=== PATIENT | female | born 1975 | race Caucasian/White ===

== ENCOUNTER 2023-09-28 09:22 | Emergency (ER) | payer MEDICARE, MEDICAID, SELFPAY ==
--- NOTE | ~2023-09-28 | CT_ITS ---
EXAMINATION: CT ABDOMEN AND PELVIS WITH CONTRAST CLINICAL INFORMATION: Severe rectal pain. COMPARISON: 08/05/2019 TECHNIQUE: Multidetector volumetric images were obtained from the superior aspect of the liver through the pubic symphysis following administration 85 mL of Omnipaque 350 intravenous contrast. Sagittal and coronal reformatted images were obtained on the technologist's workstation. Oral contrast: No This CT examination was performed using dose optimization techniques as appropriate, variously including the following: *Automated exposure control *Adjustment of mA and/or kV according to patient size (this includes techniques or standardized protocols for targeted exams where dose is matched to indication/reason for exam; i.e. extremities or head) *Use of iterative reconstruction technique DLP: 645 mGy-cm FINDINGS: LUNG BASES: Small pericardial effusion. LIVER, GALLBLADDER, AND BILIARY TREE: The liver is normal in size and contour. No suspicious hepatic lesion or biliary ductal dilatation is present. The gallbladder is unremarkable with no evidence of radiopaque gallstones, gallbladder wall thickening, or obvious pericholecystic inflammatory changes. PANCREAS: Unremarkable. SPLEEN: Unremarkable. ADRENAL GLANDS: Unremarkable. KIDNEYS AND URETERS: The kidneys are symmetric in size and. No hydronephrosis or perinephric stranding. BLADDER: Unremarkable. GASTROINTESTINAL TRACT: There is wall thickening of mid small bowel loops in the left abdomen. No small bowel obstruction. ABDOMINAL WALL: No significant hernia is appreciated. LYMPH NODES: No bulky lymphadenopathy. VASCULAR: Normal caliber abdominal aorta. PELVIC VISCERA: Uterus is surgically absent. Trace free fluid in pelvis. OSSEOUS STRUCTURES: Advanced degenerative disc disease at L5-S1. CT/CT abdomen pelvis w IV con IMPRESSION: Mid small bowel wall thickening. The possibility of enteritis should be considered.
[2023-09-28 09:31] VITALS: BP 130/78; PULSE 67; RESP 20; TEMP 36.6; O2SAT 99; BMI 25.8
[2023-09-28 09:53] LABS: MANUAL DIFF FLAG NO
[2023-09-28 09:55] LABS: Basophils Percent Auto 0.6 % (0-2); Eosinophils Absolute Auto 0.2 X10*3/uL (0.0-0.4); Eosinophils Percent Auto 3.8 % (0-4); Hematocrit 36.5 % (37.0-47.0); Hemoglobin 12.5 g/dl (12.0-16.0); Imm Gran Abs Auto 0.01 X10*3/uL (0.00-0.03); Imm Gran Pct Auto 0.2 % (0.0-0.4); Lymphocytes Absolute Auto 1.3 X10*3/uL (1.2-4.9); Lymphocytes Percent Auto 25.9 % (20-40); Mean Corpuscular HGB Conc 34.2 g/dl (31.0-35.0); Mean Corpuscular Hemoglobin 32.2 pg (27.0-33.0); Mean Corpuscular Volume 94.1 fL (80.0-98.0); Mean Platelet Volume 9.4 fL (9.4-12.3); Monocytes Absolute Auto 0.4 X10*3/uL (0.1-1.2); Monocytes Percent Auto 8.1 % (2-11); Neutrophils Absolute Auto 3.1 x10*3/uL (2.0-8.3); Neutrophils Percent Auto 61.4 % (45-73); Platelet Count 248 X10*3/uL (160-400); Red Blood Count 3.88 X10*6/uL (4.20-5.50); Red Cell Distribution Width 12.7 % (11.0-16.0); White Blood Count 5.1 X10*3/uL (4.8-10.8)
[2023-09-28 10:09] LABS: Anion Gap 9 (12-20); Blood Urea Nitrogen 9 mg/dL (9-16); Calcium 8.8 mg/dL (8.4-10.2); Carbon Dioxide 29 mmol/L (22-29); Chloride 106 mmol/L (96-108); Creatinine Clr Calc Pharmacy 85.3; Estimated Glomerular Filt Rate > 60; Glucose Random 94 mg/dL (60-115); Potassium 4.4 mmol/L (3.3-5.1); Sodium 140 mmol/L (135-145)
[2023-09-28 14:31] VITALS: BP 144/61; PULSE 75; RESP 15; TEMP 36.5; O2SAT 96
--- NOTE | 2023-09-28 14:41 | ED_ITS ---
HPI - General Adult General Chief complaint: General Medical Stated complaint: rectal issue surgery 05/25 Time Seen by Provider: 09/28/23 14:27 Source: patient Mode of arrival: ambulatory Limitations: no limitations History of Present Illness HPI narrative: 47 yo female PMH of migraines who is s/p bladder sling and rectal incontinence surgery at [facility] in May with Dr. Pizarro notes since then her stools have been loose like baby stool. She has chronic pain but is only on medical marijuana. She notes recent severe rectal pain x 1 week. She has been trying sitz bath with some relief. She took a picture during acute episode and showed it to us - 2 non thrombosed ext hemorrhoids noted. She notes decreased PO intake. increased pain and feels her entire perineum area is swollen. MD complaint: rectal/perineum pain Onset (ago): week(s) (1) Location: genitals and buttocks Severity: severe Quality: aching and constant Pain Consistency: constant Relieving factors: none Exacerbating factors: movement Associated symptoms: other (dysuria) Treatments prior to arrival: none Related Data Previous Rx's ?Medication ?Instructions ?Recorded hydrocortisone 1 %-pramoxine 1 % 1 appl [place] BEDTIME PRN hemorrhoids 09/28/23 rectal foam (Proctofoam HC) #10 grams Allergies Allergy/AdvReac Type Severity Reaction Status Date / Time ketorolac [From TORADOL] Allergy Intermediate MAKES ME Verified 09/28/23 09:37 SICK metoclopramide [From REGLAN] Allergy Intermediate ANAPHALYXIS Verified 09/28/23 09:37 butalbital [From FIORICET] Allergy Unknown UNKNOWN Verified 09/28/23 09:37 caffeine [From FIORICET] Allergy Unknown UNKNOWN Verified 09/28/23 09:37 capsaicin Allergy Unknown UNKNOWN Verified 09/28/23 09:37 [From ALLEVESS PATCH] erenumab-aooe Allergy Unknown Unknown Verified 09/28/23 09:37 [Aimovig Autoinjector] escitalopram [Lexapro] Allergy Unknown Unknown Verified 09/28/23 09:37 gabapentin [GABAPENTIN] Allergy Unknown UNKNOWN Verified 09/28/23 09:37 menthol [From ALLEVESS PATCH] Allergy Unknown UNKNOWN Verified 09/28/23 09:37 morphine [MORPHINE] Allergy Unknown UNKNOWN Verified 09/28/23 09:37 naproxen [NAPROXEN] Allergy Unknown ITCHING Verified 09/28/23 09:37 Penicillins [PENICILLINS] Allergy Unknown ANAPHYLAXIS Verified 09/28/23 09:37 pregabalin [From LYRICA] Allergy Unknown NKNOWN Verified 09/28/23 09:37 prochlorperazine Allergy Unknown DYSTONIC Verified 09/28/23 09:37 [From COMPAZINE] REACTION Sulfa (Sulfonamide Allergy Unknown ITCHING/SWE Verified 09/28/23 09:37 Antibiotics) LLING [SULFA (SULFONAMIDE ANTIBIOTICS)] sulfacetamide Allergy Unknown Anaphylaxis Verified 09/28/23 09:37 sumatriptan [SUMATRIPTAN] Allergy Unknown ANAPHYLAXIS Verified 09/28/23 09:37 topiramate [From TOPAMAX] Allergy Unknown UNKNOWN Verified 09/28/23 09:37 tramadol [TRAMADOL] Allergy Unknown HIVES Verified 09/28/23 09:37 bee sting Allergy Unknown Anaphylaxis Uncoded 09/28/23 09:37 Caffeine-Sodium Benzoate Allergy Unknown Unknown Uncoded 09/28/23 09:37 cat dander Allergy Unknown Watery Eye Uncoded 09/28/23 09:37 Compazine Allergy Unknown Difficulty Uncoded 09/28/23 09:37 Breathing Muscle Relief Allergy Unknown Difficulty Uncoded 09/28/23 09:37 Breathing Review of Systems 2 Review of Systems: Constitutional : No Fever, No Chills, No Fatigue ENT/Mouth : No sore throat, No Rhinorrhea Eyes: No Eye Pain, No Swelling, No Redness Cardiovascular : No Chest Pain, No SOB, No Dyspnea on Exertion Respiratory : No Cough, No Sputum Gastrointestinal : No Nausea, No Vomiting, No Diarrhea, No abdominal Pain, pos rectal pain Genitourinary : pos Dysuria, No Urinary Frequency, No Hematuria, Musculoskeletal : No joint pain, No Myalgias, No Joint Swelling Skin : No Skin Lesions, No rash Neuro : No Weakness, No Numbness, No Dizziness, no Headache Psych : No Anxiety/Panic, No Depression All other systems reviewed and are negative [facility] Past Medical History Attestation statement: The following information was validated with the patient. Source: old records reviewed Medical History Migraines Social History Social History (Updated 09/28/23 @ 14:56 by Kaitlin Hartley DO) Patient Tobacco Use Status: Never used Tobacco Smoked in Last 30 Days: No Use of substances other than those prescribed or required for medical reasons: Yes Substance Use Type: Marijuana Advance Directives: No Advance Directives Information Provided: No Patient : No Physical Exam ED Vital Signs: Vital Signs - 24 hr 09/28/23 09:31 09/28/23 14:31 09/28/23 16:00 Temperature 97.9 F 97.7 F 98.0 F Pulse Rate 67 75 67 Respiratory Rate 20 15 16 Blood Pressure 130/78 144/61 H 125/60 Pulse Oximetry 99 96 99 Oxygen Delivery Method Room Air Room Air Room Air 09/28/23 16:23 09/28/23 17:34 09/28/23 17:41 Temperature 98.4 F 98.4 F Pulse Rate 63 63 63 Respiratory Rate 16 16 16 Blood Pressure 131/58 L 118/45 L 118/45 L Pulse Oximetry 100 99 99 Oxygen Delivery Method Room Air Room Air Room Air BMI result Body Mass Index 25.8 Appearance: Alert. Oriented X3. No acute distress. Eyes: Pupils equal, round and reactive to light. ENT: Pharynx normal. Neck: Normal inspection. Neck supple. CVS: Normal heart rate and rhythm. Pulses normal. Respiratory: No respiratory distress. Breath sounds normal. Abdomen: Soft and nontender. Rectal: no swelling/erythema no mass felt - 2 non thrombosed small ext hemorrhoids noted mucosa is normal - Sruthi tech present Skin: Skin warm and dry. Normal skin color. Normal skin turgor. Extremities: No lower extremity edema. No calf ttp Neuro: Oriented X 3. No motor deficit. No sensory deficit. Medications Administered Discontinued Medications Generic Name Dose Route Start Last Admin Trade Name Dania PRN Reason Stop Dose Admin Diphenhydramine HCl 50 mg 09/28/23 16:18 09/28/23 16:22 Diphenhydramine Hcl 50 Mg/Ml Vial IVPUSH 09/28/23 16:19 50 mg ONCE ONE Administration Hydromorphone HCl 1 mg 09/28/23 14:36 09/28/23 15:08 Hydromorphone Hcl 1 Mg/Ml Syringe IVPUSH 09/28/23 14:37 1 mg ONCE ONE Administration Protocol Sodium Chloride 1,000 mls @ 999 mls/hr 09/28/23 14:45 09/28/23 16:13 Ns IV 09/28/23 15:45 Infused .Q1H1M KAYCE Infusion Iohexol 100 ml 09/28/23 15:37 09/28/23 15:38 Iohexol 350 Mg/Ml 100 Ml Infus..Btl IV 09/28/23 15:38 85 ml ONCE ONE Administration Ondansetron HCl 4 mg 09/28/23 14:36 09/28/23 15:08 Ondansetron Hcl 4 Mg/2 Ml Vial IVPUSH 09/28/23 14:37 4 mg ONCE ONE Administration Medical Decision Making Medical Decision Making MDM Narrative: 47 yo female with PMH of migraines s/p rectal surgery/bladder incontinence here with c/o rectal and perineum pain without overt external signs of infection or mass. She reports severe pain and abnormal stools since May at this time given degree of apin IV diluadid ordered, CT scan for mass or post operative fistula. Differential Diagnosis Differential Diagnoses: The differential diagnosis associated with the presentation includes mass, fistula Admission/Observation Consideration of admission/observation: Escalation of care including admission/observation considered no acute findings on CT scan to explain patient's symptoms Lab Data [facility] Lab Attestation statement: I reviewed the patient's lab results. 09/28/23 09:49 09/28/23 09:49 Labs: Lab Results 09/28/23 09/28/23 Range/Units 09:49 16:12 WBC 5.1 (4.8-10.8) X10*3/uL RBC 3.88 L (4.20-5.50) X10*6/uL Hgb 12.5 (12.0-16.0) g/dl Hct 36.5 L (37.0-47.0) % MCV 94.1 (80.0-98.0) fL MCH 32.2 (27.0-33.0) pg MCHC 34.2 (31.0-35.0) g/dl RDW 12.7 (11.0-16.0) % Plt Count 248 (160-400) X10*3/uL MPV 9.4 (9.4-12.3) fL Immature Gran % (Auto) 0.2 (0.0-0.4) % Neut % (Auto) 61.4 (45-73) % Lymph % (Auto) 25.9 (20-40) % [place] % (Auto) 8.1 (2-11) % Eos % (Auto) 3.8 (0-4) % Baso % (Auto) 0.6 (0-2) % Lymph # (Auto) 1.3 (1.2-4.9) X10*3/uL [place] # (Auto) 0.4 (0.1-1.2) X10*3/uL Eos # (Auto) 0.2 (0.0-0.4) X10*3/uL Baso # (Auto) 0.0 (0.0-0.2) X10*3/uL Abs Immat Gran (auto) 0.01 (0.00-0.03) X10*3/uL Absolute Neuts (auto) 3.1 (2.0-8.3) x10*3/uL Absolute Nucleated RBC 0.000 (0.0-0.012) X10*3/uL Nucleated RBC % (auto) 0.0 (0.0-0.2) /100WBC Sodium 140 (135-145) mmol/L Potassium 4.4 (3.3-5.1) mmol/L Chloride 106 (96-108) mmol/L Carbon Dioxide 29 (22-29) mmol/L Anion Gap 9 L (12-20) BUN 9 (9-16) mg/dL Creatinine 0.86 (0.5-1.4) mg/dL Estim Creat Clear Calc 85.3 Estimated GFR > 60 Random Glucose 94 (60-115) mg/dL Calcium 8.8 (8.4-10.2) mg/dL Total Bilirubin 0.2 (0.0-1.0) mg/dL Direct Bilirubin < 0.2 (0.0-0.5) mg/dL AST 15 (5-31) U/L ALT 11 (0-31) U/L Alkaline Phosphatase 75 (39-117) U/L Total Protein 6.6 (6.5-8.0) g/dL Albumin 4.0 (3.5-5.0) g/dL Lipase 26 (8-78) U/L Urine Color Yellow Urine Appearance Clear Urine pH 7.0 (5.0-9.0) Ur Specific [place] 1.020 (1.005-1.025) Urine Protein Negative (Neg-Trace) mg/dL Urine Glucose (UA) Negative (Negative) mg/dL Urine Ketones Negative (Negative) mg/dL Urine Blood Negative (Negative) Urine Nitrite Negative (Negative) Ur Leukocyte Esterase Negative (Negative) Independent Interpretation I performed an independent interpretation of an: CT Scan (possible mild enteritis) Radiology Impression Discussion of test interpretation with radiology: I have reviewed the radiologist's reading. External Record Review External record reviewed: Inpatient record Prescription Management I considered prescription management with: Pain Medication Critical Care Time Critical Care Time Critical Care Time: Yes Total Critical Care Time: 35 Attestation: pain improved with IV dilaudid, repeat assessment I attest to this time spent taking care of the patient Discharge Plan Discharge Clinical Impression: External hemorrhoid, Pain in rectum Patient Disposition: Home, Self-Care Instructions: Hemorrhoids (ED), Rectal Pain (ED) Additional Instructions: labs reassuring, urine normal. no acute findings on CT scan to explain your pain. you should call your surgeon as soon as possible return for any worsening symptoms or concerns. stay hydrated. Prescriptions: New Proctofoam HC 1-1 % foam 1 appl [place] BEDTIME PRN (Reason: hemorrhoids) Qty: 10 0RF Interventions: ED Discharge Assessment Last Done: 09/28/23 17:41 Discharge Date/Time: 09/28/23 17:45 Print Language: Guatemalan
[2023-09-28] MEDS: 0.9 % Sodium Chloride 1,000 ML 999 ML IV (15:07)
[2023-09-28] MEDS: HYDROmorphone HCl 1 MG/ML SYRINGE IVPUSH (15:08)
[2023-09-28] MEDS: ondansetron HCL 4 MG/2 ML VIAL IVPUSH (15:08)
[2023-09-28 15:38] LABS: Alanine Aminotransferase 11 U/L (0-31); Alkaline Phosphatase 75 U/L (39-117); Aspartate Amino Transferase 15 U/L (5-31); Bilirubin Direct < 0.2 mg/dL (0.0-0.5); Bilirubin Total 0.2 mg/dL (0.0-1.0); Lipase 26 U/L (8-78); Total Protein 6.6 g/dL (6.5-8.0)
[2023-09-28] MEDS: iohexoL 350 MG/ML 100 ML INFUS..BTL IV (15:38)
[2023-09-28 16:00] VITALS: BP 125/60; PULSE 67; RESP 16; TEMP 36.7; O2SAT 99
[2023-09-28] MEDS: diphenhydrAMINE HCL 50 MG/ML VIAL IVPUSH (16:22)
[2023-09-28 16:23] VITALS: BP 131/58; PULSE 63; RESP 16; O2SAT 100
[2023-09-28 16:29] LABS: Appearance Urine Clear; Color Urine Yellow; Glucose Urine UA Negative (Negative); Leukocyte Esterase Urine Negative (Negative); Nitrite Urine Negative (Negative); Urine Blood Negative (Negative); Urine Ketones Negative (Negative); Urine Protein Negative (Neg-Trace)
[2023-09-28 17:34] VITALS: BP 118/45; PULSE 63; RESP 16; TEMP 36.9; O2SAT 99
[2023-09-28 17:41] VITALS: BP 118/45; PULSE 63; RESP 16; TEMP 36.9; O2SAT 99
== END 2023-09-28 17:45 | disposition home or self-care (01) ==
PROVIDERS: Emergency Provider Emergency Medicine; PCP Pediatrics
DX: K62.89 Other specified diseases of anus and rectum (principal); K64.4 Residual hemorrhoidal skin tags; Z88.0 Allergy status to penicillin; Z88.5 Allergy status to narcotic agent; Z88.8 Allergy status to other drugs, medicaments and biological substances
CPT/HCPCS: 36415; 74177; 80048; 80076; 81003; 83690; 85025; 96361; 96374; 96375; 99284; J1170; J1200; J2405; Q9967

== ENCOUNTER 2023-10-14 08:14 | Emergency (ER) | payer MEDICARE, OTHER, MEDICAID, SELFPAY ==
[2023-10-14 08:23] VITALS: BP 152/66; PULSE 79; RESP 18; TEMP 35.9; O2SAT 97; BMI 26.6
--- NOTE | 2023-10-14 09:10 | ED_ITS ---
HPI - General Adult General Chief complaint: Skin/Abscess/Foreign Body Stated complaint: Herpes Outbreak on Face Time Seen by Provider: 10/14/23 09:06 Source: patient Mode of arrival: ambulatory Limitations: no limitations History of Present Illness HPI narrative: Patient is a 47 year old assigned female at with a history of HSV presenting to the emergency department today with an HSV outbreak. Patient states that she is supposed to have surgery soon and hasn't been able to clear her oral HSV outbreak. Patient states that they won't intubate her for general anesthesia unless she gets it resolved. Patient states that she has had Valtrax before but for some reason, her PCP has it listed as an allergy for her - so they are refusing to prescribe it. Patient states that she would like to be prescribed that medication. Patient denies any dizziness, lightheadedness, abdominal pain, nausea, vomiting, fever, chills, blurry vision, double vision, loss of vision, chest pain, difficulty breathing, shortness of breath, back pain, night sweats, pain with urination, increased urinary frequency, increased urinary urgency, blood in her urine or stool, syncope or a near syncopal episode, recent trauma or falls, bowel incontinence, bladder incontinence, bowel retention, bladder retention, or any other complaints at this time. Relieving factors: none Exacerbating factors: none Associated symptoms: rash Treatments prior to arrival: none Related Data Previous Rx's ?Medication ?Instructions ?Recorded hydrocortisone 1 %-pramoxine 1 % 1 appl [place] BEDTIME PRN hemorrhoids 09/28/23 rectal foam (Proctofoam HC) #10 grams prednisone 20 mg tablet 20 mg PO DAILY 7 days #7 tabs 10/14/23 valacyclovir 500 mg tablet 500 mg PO BID 3 days #6 tabs 10/14/23 Allergies Allergy/AdvReac Type Severity Reaction Status Date / Time ketorolac [From TORADOL] Allergy Intermediate MAKES ME Verified 09/28/23 09:37 SICK metoclopramide [From REGLAN] Allergy Intermediate ANAPHALYXIS Verified 09/28/23 09:37 butalbital [From FIORICET] Allergy Unknown UNKNOWN Verified 09/28/23 09:37 caffeine [From FIORICET] Allergy Unknown UNKNOWN Verified 09/28/23 09:37 capsaicin Allergy Unknown UNKNOWN Verified 09/28/23 09:37 [From ALLEVESS PATCH] erenumab-aooe Allergy Unknown Unknown Verified 09/28/23 09:37 [Aimovig Autoinjector] escitalopram [Lexapro] Allergy Unknown Unknown Verified 09/28/23 09:37 gabapentin [GABAPENTIN] Allergy Unknown UNKNOWN Verified 09/28/23 09:37 menthol [From ALLEVESS PATCH] Allergy Unknown UNKNOWN Verified 09/28/23 09:37 morphine [MORPHINE] Allergy Unknown UNKNOWN Verified 09/28/23 09:37 naproxen [NAPROXEN] Allergy Unknown ITCHING Verified 09/28/23 09:37 Penicillins [PENICILLINS] Allergy Unknown ANAPHYLAXIS Verified 09/28/23 09:37 pregabalin [From LYRICA] Allergy Unknown NKNOWN Verified 10/14/23 08:26 prochlorperazine Allergy Unknown DYSTONIC Verified 10/14/23 08:26 [From COMPAZINE] REACTION Sulfa (Sulfonamide Allergy Unknown ITCHING/SWE Verified 10/14/23 08:26 Antibiotics) LLING [SULFA (SULFONAMIDE ANTIBIOTICS)] sulfacetamide Allergy Unknown Anaphylaxis Verified 10/14/23 08:26 sumatriptan [SUMATRIPTAN] Allergy Unknown ANAPHYLAXIS Verified 10/14/23 08:26 topiramate [From TOPAMAX] Allergy Unknown UNKNOWN Verified 10/14/23 08:26 tramadol [TRAMADOL] Allergy Unknown HIVES Verified 10/14/23 08:26 bee sting Allergy Unknown Anaphylaxis Uncoded 09/28/23 09:37 Caffeine-Sodium Benzoate Allergy Unknown Unknown Uncoded 09/28/23 09:37 cat dander Allergy Unknown Watery Eye Uncoded 09/28/23 09:37 Compazine Allergy Unknown Difficulty Uncoded 09/28/23 09:37 Breathing Muscle Relief Allergy Unknown Difficulty Uncoded 09/28/23 09:37 Breathing Review of Systems Constitutional: Constitutional: Reports no additional constitutional complaints, Denies chills, Denies fever(s) and Denies night sweats Eyes: Eyes: Reports no additional eye complaints, Denies blurry vision, Denies change in vision, Denies diplopia, Denies eye discharge, Denies loss of vision and Denies eye pain ENT: Denies dizziness Comments: herpes outbreak around mouth Cardiovascular: Cardiovascular: Reports no additional cardiovascular complaints, Denies chest pain, Denies lightheadedness, Denies Loss of Consciousness and Denies dyspnea Respiratory: Respiratory: Reports no additional respiratory complaints and Denies dyspnea Gastrointestinal: Gastrointestinal: Reports no additional gastrointestinal complaints, Denies abdominal pain, Denies melena, Denies hematochezia, Denies change in bowel habits and Denies change in stool character Genitourinary: Genitourinary: Denies hematuria, Denies urinary frequency, Denies dysuria, Denies urinary incontinence, Denies urinary hesitancy and Denies urinary urgency Musculoskeletal: Musculoskeletal: Reports no additional musculoskeletal complaints, Denies numbness and Denies tingling Neurologic: Denies dizziness, Denies loss of vision, Denies numbness and Denies tingling Psychiatric: Psychiatric: Reports no additional psychiatric complaints Endocrine: Endocrine: Reports no additional endocrine complaints Hematologic/Lymphatic: Hematologic/Lymphatic: Reports no additional hematologic/lymphatic complaints Allergic/Immunologic: Allergic/Immunologic: Reports no additional allergic/immunologic complaints PMF Past Medical History Attestation statement: The following information was validated with the patient. Source: old records reviewed and nursing notes reviewed Medical History Migraines Social History Social History Patient Tobacco Use Status: Never used Tobacco Substance Use Type: Marijuana Advance Directives: No Advance Directives Information Provided: No Do you have a plan to hurt others: No Plan Physical Exam ED Vital Signs: Vital Signs - 24 hr 10/14/23 08:23 10/14/23 09:39 Temperature 96.7 F L 98.5 F Pulse Rate 79 64 Respiratory Rate 18 19 Blood Pressure 152/66 H 102/60 Pulse Oximetry 97 98 Oxygen Delivery Method Room Air Room Air BMI result Body Mass Index 26.6 Const General: cooperative, no acute distress, alert and awake Nutritional Appearance: well nourished Orientation/consciousness: patient oriented x3 Limitations: no limitations HENMT Head: Yes normal to inspection and Yes atraumatic Ears: hearing grossly normal bilaterally and external ears normal General nose exam: Normal external nose present, no nasal discharge noted and no epistaxis Face and sinus: No abrasion, No laceration and Yes other (multiple herpetic lesions present circumferentially around the mouth) Mouth: Normal oral and palatal mucosa present, no drooling and no muffled voice Eyes General: appearance normal, both eyes and all related structures Periorbital: periorbital findings normal Eyelids: Yes eyelids normal Conjunctivae: conjunctivae normal Pupils: Equal, round and reactive pupils present EOM: EOMs intact bilaterally Neck Neck: Yes normal visual inspection, Yes full ROM and Yes no lymphadenopathy Chest Chest palpation & inspection: normal inspection of the chest Resp Effort & Inspection: normal respiratory effort and able to speak in complete sentences GI Inspection: Yes normal to inspection Neuro General: patient oriented x3 and moves all extremities Cranial nerves: Yes Equal, round and reactive pupils present Cognition (Neuro): normal cognition Motor exam (neuro): 5/5 motor strength present throughout Sensory Exam: Normal double simultaneous stimulation for sensation Coordination: [id number] test normal Extrem General: Yes normal to inspection, Yes full ROM and Yes capillary refill normal Psych Appearance: grossly normal Mental Status: mental status grossly normal Affect: normal affect Attitude: cooperative Thought process: Normal thought process present Thought content: Normal thought content present Insight: Good insight present (Psych) Medical Decision Making Medical Decision Making MDM Narrative: Patient is a 47 year old assigned female at with a history of HSV presenting to the emergency department today with an HSV outbreak. Patient's physical exam was as noted in the physical exam portion of this note. No evidence of eye or nose involvement. I explained my physical exam findings to the patient. I answered all questions asked by the patient. I stressed the importance of the patient taking her medication as prescribed. I stressed the importance of the patient following up with her primary care provider. I stressed the importance of the patient returning to the emergency department immediately if her symptoms were to worsen or if she were to develop any dizziness, shortness of breath, difficulty breathing, chest pain, blurry vision, loss of vision, nausea, vomiting, abdominal pain, fever, chills, back pain, or any other complaints. Patient verbalized agreement and understanding with this treatment plan and discharge. Differential Diagnosis Differential Diagnoses: The differential diagnosis associated with the prese ntation includes HSV outbreak Herpetic lesion Rash Admission/Observation Consideration of admission/observation: Escalation of care including admission/observation considered Patient would have been admitted to the hospital had her clinical presentation warranted hospital admission. Prescription Management I considered prescription management with: Antiviral (patient prescribed an antiviral for her HSV outbreak) Discharge Plan Discharge Clinical Impression: Herpes Patient Disposition: Home, Self-Care Instructions: Oral Herpes Simplex Virus Infections (ED) Additional Instructions: Follow up with your primary care provider. Return to the emergency department immediately if your symptoms worsen or if you develop any dizziness, shortness of breath, difficulty breathing, chest pain, blurry vision, loss of vision, nausea, vomiting, abdominal pain, fever, chills, back pain, or any other complaints. Prescriptions: New valacyclovir 500 mg tablet 500 mg PO BID 3 Days Qty: 6 3RF prednisone 20 mg tablet 20 mg PO DAILY 7 Days Qty: 7 0RF No Action Proctofoam HC 1-1 % foam 1 appl [place] BEDTIME PRN (Reason: hemorrhoids) Qty: 10 0RF Referrals: Garry Ogden MD [Primary Care Provider] - Stand Alone Forms: Work/School Release Interventions: ED Discharge Assessment Last Done: 10/14/23 09:39 Discharge Date/Time: 10/14/23 09:41 Print Language: Kyrgyz
[2023-10-14 09:39] VITALS: BP 102/60; PULSE 64; RESP 19; TEMP 36.9; O2SAT 98
== END 2023-10-14 09:41 | disposition home or self-care (01) ==
PROVIDERS: Emergency Provider Emergency Medicine; PCP Pediatrics
DX: B00.1 Herpesviral vesicular dermatitis (principal)
CPT/HCPCS: 99282; 99283

== ENCOUNTER 2025-03-03 09:12 | Emergency (ER) | payer OTHER, MEDICAID, SELFPAY ==
--- NOTE | ~2025-03-03 | CT_ITS ---
EXAMINATION: CT ANGIOGRAM head and NECK and noncontrast head CT CLINICAL INFORMATION: severe headache, pulsatile tinnitus COMPARISON: Head CT April 03, 2019 TECHNIQUE: Noncontrast axial imaging of the head was performed. This was followed by test bolus sequences and head and neck intravenous bolus administration of 70mL of Omnipaque 350. Helical imaging was performed in the axial plane from the aortic arch to the skull vertex. The data was processed at the pathology technologist's workstation for generation of MIP sequences. Angled MIPs and volume rendered reformatted images were also generated at an offline 3D workstation. Stenoses are assessed in accordance with NASCET criteria unless otherwise indicated. This CT examination was performed using dose optimization techniques as appropriate, variously including the following: *Automated exposure control *Adjustment of mA and/or kV according to patient size (this includes techniques or standardized protocols for targeted exams where dose is matched to indication/reason for exam; i.e. extremities or head) *Use of iterative reconstruction technique DLP: 1413 mGy*cm FINDINGS: NONCONTRAST HEAD CT: There is moderate frontotemporal atrophy. There is no evidence of intracranial hemorrhage or extra-axial fluid collection. There is no mass effect, or edema. No CT evidence of acute territorial infarct. Ventricles, sulci, and cisterns are normal in size and configuration for patient age. No hydrocephalus. No midline shift. No significant white matter abnormalities. Globes and orbital contents image normally. No extracranial soft tissue abnormalities. The paranasal sinuses, mastoid air cells, and tympanic cavities are normally aerated. No suspicious bony abnormalities. NECK CTA: -AORTIC ARCH: Normal in caliber. Three-vessel branching pattern. -GREAT VESSEL ORIGINS: Widely patent. No stenosis. -RIGHT COMMON CAROTID ARTERY: Normal in course and caliber to the level of the bifurcation. -CERVICAL RIGHT INTERNAL CAROTID ARTERY: Normal opacification without focal stenosis or occlusion. -LEFT COMMON CAROTID ARTERY: Normal in course and caliber to the level of the bifurcation. -CERVICAL LEFT INTERNAL CAROTID ARTERY: Mild calcific atherosclerotic disease of the carotid bulb without stenosis. -CERVICAL RIGHT VERTEBRAL ARTERY: Codominant. Normal in course and caliber into the skull base. -CERVICAL LEFT VERTEBRAL ARTERY: Codominant. Normal in course and caliber into the skull base. OTHER, SOFT TISSUES: -No lymphadenopathy or mass. No abnormal fluid collection or soft tissue swelling. -Normal thyroid. -Imaged superior mediastinal structures normal. -Imaged lung apices clear. CTA OF THE BRAIN: -INTRACRANIAL INTERNAL CAROTID ARTERIES: Mild atherosclerotic plaque is present in the carotid siphon without focal stenosis or occlusion. -RIGHT ANTERIOR CEREBRAL ARTERY: Normal A1 segment.. Normal arborization of the distal segments. -LEFT ANTERIOR CEREBRAL ARTERY: Normal A1 segment.. Normal arborization of the distal segments. -ANTERIOR COMMUNICATING ARTERY: Normal. -RIGHT MIDDLE CEREBRAL ARTERY: Normal M1 segment of the MCA without focal stenosis or occlusion. Normal bifurcation. Normal arborization of the distal segments. -LEFT MIDDLE CEREBRAL ARTERY: Normal M1 segment of the MCA without focal stenosis or occlusion. Normal bifurcation. Normal arborization of the distal segments. -RIGHT VERTEBRAL ARTERY V4: Normal in course and caliber. Normal PICA branch. -LEFT VERTEBRAL ARTERY V4: Normal in course and caliber. Normal PICA branch. -BASILAR ARTERY: Normal without focal stenosis or occlusion. Normal appearance of the proximal superior cerebellar arteries. Normal basilar tip. -RIGHT POSTERIOR CEREBRAL ARTERY: Normal P1 segment. Normal opacification of the distal [place] segments. -LEFT POSTERIOR CEREBRAL ARTERY: Normal P1 segment. Normal opacification of the distal [place] segments. -POSTERIOR COMMUNICATING ARTERIES: Small but present. Normal opacification of the superior sagittal, straight, transverse, and sigmoid sinuses. No venous thrombosis. No space-occupying hemorrhage or definite evolving infarct. CT/CT angio head neck IMPRESSION: NONCONTRAST HEAD CT: No intracranial hemorrhage or mass effect. No CT evidence of acute territorial infarct. CTA NECK: No hemodynamically significant stenosis. Minimal focal calcified plaque is present in the left carotid bulb.. CTA HEAD: No hemodynamically significant stenosis. Diggs text delivered to Kaitlin Hartley DO at 2:17 PM Eastern time Electronically signed by: Alvaro Mccoy MD 03/03/2025 02:19 PM EDT
[2025-03-03 09:42] VITALS: BP 139/71; PULSE 57; RESP 18; TEMP 36.4; O2SAT 98; BMI 28.0
[2025-03-03 11:33] VITALS: BP 146/56; PULSE 51; RESP 16; TEMP 36.5; O2SAT 96
[2025-03-03] MEDS: diazePAM 10 MG/2 ML CARTRIDGE 5 MG IVPUSH (11:57)
[2025-03-03] MEDS: Magnesium Sulfate/H2O 2 GM/50 ML PIGGYBACK IV (11:57)
[2025-03-03] MEDS: Lactated Ringers 1,000 ML 999 ML IV (11:58)
[2025-03-03 12:16] LABS: MANUAL DIFF FLAG NO
--- NOTE | 2025-03-03 12:17 | ED_ITS ---
HPI - Headache General Chief Complaint: Headache Stated Complaint: eyes pulsing when migraine Time Seen by Provider: 03/03/25 11:31 Source: patient, family and old records reviewed Mode of arrival: ambulatory Limitations: no limitations History of Present Illness ED Provider: SUDHIR CARMONA Narrative: 49 yo female with PMH of chronic migraines who has daily headaches just had botox about a month ago, had MRI 6 months ago and follows with a Neurologist but no on daily medications, not on blood thinners, fibromyalgia who reports a headache x 1 week gradual onset, occurred at rest but her whole head hurts and normally she gets flashes and floaters but this headache is different as she has fireworks in both eyes that go with her pulse. She has photophobia and nausea. She denies head trauma, neck manipulation, fevers, numbness or weakness. She has no AH/VH she states she just has heard crackling sounds but no voices in her ears. MD elicited complaint: migraine Pertinent past history: migraines Onset (ago): week(s) (1) Onset description: gradually Location: right, left, frontal, temporal and band-like Severity: severe Quality & Timing: throbbing, constant and similar to previous headaches Exacerbating factors: light and noise Relieving factors: rest and dark room Context: occurred at rest Associated symptoms: nausea and photophobia Treatments prior to arrival: none Related Data Previous Rx's ?Medication ?Instructions ?Recorded hydrocortisone 1 %-pramoxine 1 % 1 appl SD BEDTIME PRN hemorrhoids 09/28/23 rectal foam (Proctofoam HC) #10 grams prednisone 20 mg tablet 20 mg PO DAILY 7 days #7 tab s 10/14/23 valacyclovir 500 mg tablet 500 mg PO BID 3 days #6 tab s 10/14/23 diazepam 5 mg tablet (Valium) 5 mg PO TID PRN muscle s pasm #10 03/03/25 tabs ondansetron 4 mg disintegrating 4 mg PO Q8H PRN nausea and 03/03/25 tablet vomiting #20 tabs Allergies Allergy/AdvReac Type Severity Reaction Status Date / Time ketorolac (From TORADOL) Allergy Intermediate MAKES ME Verified 03/03/25 09:46 SICK metoclopramide (From REGLAN) Allergy Intermediate ANAPHALYXIS Verified 03/03/25 09:46 butalbital (From FIORICET) Allergy Unknown UNKNOWN Verified 03/03/25 09:46 caffeine (From FIORICET) Allergy Unknown UNKNOWN Verified 03/03/25 09:46 capsaicin (From ALLEVESS Allergy Unknown UNKNOWN Verified 03/03/25 09:46 PATCH) erenumab-aooe (Aimovig Allergy Unknown Unknown Verified 03/03/25 09:46 Autoinjector) escitalopram (Lexapro) Allergy Unknown Unknown Verified 03/03/25 09:46 gabapentin (GABAPENTIN) Allergy Unknown UNKNOWN Verified 03/03/25 09:46 menthol (From ALLEVESS PATCH) Allergy Unknown UNKNOWN Verified 03/03/25 09:46 morphine (MORPHINE) Allergy Unknown UNKNOWN Verified 03/03/25 09:46 naproxen (NAPROXEN) Allergy Unknown ITCHING Verified 03/03/25 09:46 Penicillins (PENICILLINS) Allergy Unknown ANAPHYLAXIS Verified 03/03/25 09:46 pregabalin (From LYRICA) Allergy Unknown NKNOWN Verified 03/03/25 09:46 prochlorperazine (From Allergy Unknown DYSTONIC Verified 03/03/25 09:46 COMPAZINE) REACTION Sulfa (Sulfonamide Allergy Unknown ITCHING/SWE Verified 03/03/25 09:46 Antibiotics) (SULFA LLING (SULFONAMIDE ANTIBIOTICS)) sulfacetamide Allergy Unknown Anaphylaxis Verified 03/03/25 09:46 sumatriptan (SUMATRIPTAN) Allergy Unknown ANAPHYLAXIS Verified 03/03/25 09:46 topiramate (From TOPAMAX) Allergy Unknown UNKNOWN Verified 03/03/25 09:46 tramadol (TRAMADOL) Allergy Unknown HIVES Verified 03/03/25 09:46 bee sting Allergy Unknown Anaphylaxis Uncoded 09/28/23 09:37 Caffeine-Sodium Benzoate Allergy Unknown Unknown Uncoded 09/28/23 09:37 cat dander Allergy Unknown Watery Eye Uncoded 09/28/23 09:37 Compazine Allergy Unknown Difficulty Uncoded 09/28/23 09:37 Breathing Muscle Relief Allergy Unknown Difficulty Uncoded 09/28/23 09:37 Breathing Review of Systems 2 Review of Systems: Constitutional : No Fever, No Chills, No Fatigue ENT/Mouth : No sore throat, No Rhinorrhea Eyes: No Eye Pain, No Swelling, No Redness Cardiovascular : No Chest Pain, No SOB, No Dyspnea on Exertion Respiratory : No Cough, No Sputum Gastrointestinal : pos Nausea, No Vomiting, No Diarrhea, No abdominal Pain Genitourinary : No Dysuria, No Urinary Frequency, No Hematuria, Musculoskeletal : No joint pain, No Myalgias, No Joint Swelling Skin : No Skin Lesions, No rash Neuro : No Weakness, No Numbness, No Dizziness, positive Headache All other systems reviewed and are negative [facility] Past Medical History Attestation statement: The following information was validated with the patient. Source: old records reviewed Medical History Migraines Social History Social History Patient Tobacco Use Status: Never used Tobacco Substance Use Type: Marijuana Physical Exam 2 Vital Signs: Vital Signs: Last Vital Signs Temp 97.7 F 03/03/25 15:46 Pulse 51 03/03/25 15:46 Resp 16 03/03/25 15:46 BP 146/56 H 03/03/25 15:46 Pulse Ox 96 03/03/25 15:46 O2 Del Method Room Air 03/03/25 15:46 BMI result Body Mass Index 28.0 Appearance: Alert. Oriented X3. No acute distress. Eyes: Pupils equal, round and reactive to light. ENT: Pharynx normal. TMs normal bilaterally Neck: Normal inspection. Neck supple. CVS: Normal heart rate and rhythm. Pulses normal. Respiratory: No respiratory distress. Breath sounds normal. Abdomen: Soft and nontender. Skin: Skin warm and dry. Normal skin color. Normal skin turgor. Extremities: No lower extremity edema. No calf ttp Neuro: Oriented X 3. No motor deficit. No sensory deficit. CN2-12 intact Medications Administered Discontinued Medications Generic Name Dose Route Start Last Admin Trade Name Josueq PRN Reason Stop Dose Admin Dexamethasone Sodium Phosphate 6 mg 03/03/25 11:42 03/03/25 11:56 Dexamethasone Sod Phosphate 4 Mg/Ml Vial IVPUSH 03/03/25 11:43 6 mg ONCE ONE Administration Diazepam 5 mg 03/03/25 11:39 03/03/25 11:57 Diazepam 10 Mg/2 Ml Cartridge IVPUSH 03/03/25 11:40 5 mg STAT STA Administration Lactated Ringer's 1,000 mls @ 999 mls/hr 03/03/25 11:39 03/03/25 13:15 Lr IV 03/03/25 12:39 Infused .Q1H1M ONE Infusion Magnesium Sulfate 2 gm in 50 mls @ 25 mls/hr 03/03/25 11:39 03/03/25 14:51 Magnesium Sulfate/H2o IV 03/03/25 13:38 Infused ONCE ONE Infusion Acetaminophen 1,000 mg in 100 mls @ 400 mls/hr 03/03/25 11:39 03/03/25 12:15 Ofirmev IV 03/03/25 11:53 Infused ONCE ONE Infusion Iohexol 100 ml 03/03/25 13:49 03/03/25 13:50 Iohexol 350 Mg/Ml 100 Ml Infus..Btl IV 03/03/25 13:50 70 ml ONCE ONE Administration Ondansetron HCl 4 mg 03/03/25 13:37 03/03/25 13:45 Ondansetron Hcl 4 Mg/2 Ml Vial IVPUSH 03/03/25 13:38 4 mg ONCE ONE Administration Medical Decision Making Medical Decision Making [facility] Narrative: 49 yo female with PMH of chronic migraines not on blood thinners, fibromyalgia here with typical pain nausea and photophobia but reports that she also has these fireworks that seem to go with her heart beat in both eyes which is unusual from her typical ocular symptoms. She also hears noises in her ear. She denies AH/VH. At this time I am ordering migraine medications along with magnesium and dexamethasone. I have ordered CTA to rule out aneurysm. She has no neuro deficits, she has no fevers to suggest infection and she has no meningeal signs - her onset is atypical for SAH. Differential Diagnosis Differential Diagnoses: The differential diagnosis associated with the presentation includes headache, aneurysm, no fevers doubt infection, no abrupt onset and no meningeal signs doubt SAH Admission/Observation Consideration of admission/observation: Escalation of care including admission/observation considered feels better CTA normal stable for DC Lab Data [facility] Lab Attestation statement: I reviewed the patient's lab results. 03/03/25 11:55 03/03/25 11:55 Labs: Lab Results 03/03/25 Range/Units 11:55 WBC 4.9 (4.8-10.8) X10*3/uL RBC 4.57 (4.20-5.50) X10*6/uL Hgb 13.9 (12.0-16.0) g/dl Hct 41.4 (37.0-47.0) % MCV 90.6 (80.0-98.0) fL MCH 30.4 (27.0-33.0) pg MCHC 33.6 (31.0-35.0) g/dl RDW 12.5 (11.0-16.0) % Plt Count 245 (160-400) X10*3/uL MPV 10.1 (9.4-12.3) fL Immature Gran % (Auto) 0.2 (0.0-0.4) % Neut % (Auto) 63.6 (45-73) % Lymph % (Auto) 26.7 (20-40) % [place] % (Auto) 6.4 (2-11) % Eos % (Auto) 2.3 (0-4) % Baso % (Auto) 0.8 (0-2) % Lymph # (Auto) 1.3 (1.2-4.9) X10*3/uL [place] # (Auto) 0.3 (0.1-1.2) X10*3/uL Eos # (Auto) 0.1 (0.0-0.4) X10*3/uL Baso # (Auto) 0.0 (0.0-0.2) X10*3/uL Abs Immat Gran (auto) 0.01 (0.00-0.03) X10*3/uL Absolute Neuts (auto) 3.1 (2.0-8.3) x10*3/uL Absolute Nucleated RBC 0.000 (0.0-0.012) X10*3/uL Nucleated RBC % (auto) 0.0 (0.0-0.2) /100WBC Sodium 142 (135-145) mmol/L Potassium 3.8 (3.3-5.1) mmol/L Chloride 108 (96-108) mmol/L Carbon Dioxide 26 (22-29) mmol/L Anion Gap 12 (12-20) BUN 14 (9-16) mg/dL Creatinine 0.85 (0.5-1.4) mg/dL Estim Creat Clear Calc 81.8 Estimated GFR > 60 Random Glucose 91 (60-115) mg/dL Calcium 9.3 (8.4-10.2) mg/dL Magnesium 1.8 (1.6-2.6) mg/dL Total Bilirubin 0.3 (0.0-1.0) mg/dL Direct Bilirubin 0.1 (0.0-0.5) mg/dL AST 25 (5-31) U/L ALT 18 (0-31) U/L Alkaline Phosphatase 84 (39-117) U/L Total Protein 7.3 (6.5-8.0) g/dL Albumin 4.7 (3.5-5.0) g/dL Independent Interpretation I performed an independent interpretation of an: CT Scan (normal ) Radiology Impression Discussion of test interpretation with radiology: I have reviewed the radiologist's reading. Independent Historian Clinical information obtained from an independent historian. History obtained from or confirmed by: Other External Record Review External record reviewed: Outpatient record Prescription Management I considered prescription management with: Pain Medication and Other Discharge Plan Discharge Clinical Impression: Migraine Qualifiers: Migraine type: chronic migraine (15 or more days per month) with aura Status migrainosus presence: without status migrainosus Intractability: not intractable Qualified Code(s): G43.E09 - Chronic migraine with aura, not intractable, without status migrainosus Patient Disposition: Home, Self-Care Instructions: Migraine Headache (ED) Additional Instructions: labs reassuring CT scan no acute finding please follow up with your doctor and neurologist return for any worsening symptoms or concerns NONCONTRAST HEAD CT: There is moderate frontotemporal atrophy. There is no evidence of intracranial hemorrhage or extra-axial fluid collection. There is no mass effect, or edema. No CT evidence of acute territorial infarct. Ventricles, sulci, and cisterns are normal in size and configuration for patient age. No hydrocephalus. No midline shift. No significant white matter abnormalities. Globes and orbital contents image normally. No extracranial soft tissue abnormalities. The paranasal sinuses, mastoid air cells, and tympanic cavities are normally aerated. No suspicious bony abnormalities. NECK CTA: -AORTIC ARCH: Normal in caliber. Three-vessel branching pattern. -GREAT VESSEL ORIGINS: Widely patent. No stenosis. -RIGHT COMMON CAROTID ARTERY: Normal in course and caliber to the level of the bifurcation. -CERVICAL RIGHT INTERNAL CAROTID ARTERY: Normal opacification without focal stenosis or occlusion. -LEFT COMMON CAROTID ARTERY: Normal in course and caliber to the level of the bifurcation. -CERVICAL LEFT INTERNAL CAROTID ARTERY: Mild calcific atherosclerotic disease of the carotid bulb without stenosis. -CERVICAL RIGHT VERTEBRAL ARTERY: Codominant. Normal in course and caliber into the skull base. -CERVICAL LEFT VERTEBRAL ARTERY: Codominant. Normal in course and caliber into the skull base. OTHER, SOFT TISSUES: -No lymphadenopathy or mass. No abnormal fluid collection or soft tissue swelling. -Normal thyroid. -Imaged superior mediastinal structures normal. -Imaged lung apices clear. CTA OF THE BRAIN: -INTRACRANIAL INTERNAL CAROTID ARTERIES: Mild atherosclerotic plaque is present in the carotid siphon without focal stenosis or occlusion. -RIGHT ANTERIOR CEREBRAL ARTERY: Normal A1 segment.. Normal arborization of the distal segments. -LEFT ANTERIOR CEREBRAL ARTERY: Normal A1 segment.. Normal arborization of the distal segments. -ANTERIOR COMMUNICATING ARTERY: Normal. -RIGHT MIDDLE CEREBRAL ARTERY: Normal M1 segment of the MCA without focal stenosis or occlusion. Normal bifurcation. Normal arborization of the distal segments. -LEFT MIDDLE CEREBRAL ARTERY: Normal M1 segment of the MCA without focal stenosis or occlusion. Normal bifurcation. Normal arborization of the distal segments. -RIGHT VERTEBRAL ARTERY V4: Normal in course and caliber. Normal PICA branch. -LEFT VERTEBRAL ARTERY V4: Normal in course and caliber. Normal PICA branch. -BASILAR ARTERY: Normal without focal stenosis or occlusion. Normal appearance of the proximal superior cerebellar arteries. Normal basilar tip. -RIGHT POSTERIOR CEREBRAL ARTERY: Normal P1 segment. Normal opacification of the distal [employer] segments. -LEFT POSTERIOR CEREBRAL ARTERY: Normal P1 segment. Normal opacification of the distal [employer] segments. -POSTERIOR COMMUNICATING ARTERIES: Small but present. Normal opacification of the superior sagittal, straight, transverse, and sigmoid sinuses. No venous thrombosis. No space-occupying hemorrhage or definite evolving infarct. CT/CT angio head neck IMPRESSION: NONCONTRAST HEAD CT: No intracranial hemorrhage or mass effect. No CT evidence of acute territorial infarct. CTA NECK: No hemodynamically significant stenosis. Minimal focal calcified plaque is present in the left carotid bulb.. CTA HEAD: No hemodynamically significant stenosis. Prescriptions: New ondansetron 4 mg tablet,disintegrating 4 mg PO Q8H PRN (Reason: nausea and vomiting) Qty: 20 0RF diazepam [Valium] 5 mg tablet 5 mg PO TID PRN (Reason: muscle spasm) Qty: 10 0RF Rx Instructions: partial fill is okay No Action Proctofoam HC 1-1 % foam 1 appl SD BEDTIME PRN (Reason: hemorrhoids) Qty: 10 0RF valacyclovir 500 mg tablet 500 mg PO BID 3 Days Qty: 6 3RF prednisone 20 mg tablet 20 mg PO DAILY 7 Days Qty: 7 0RF Interventions: ED Discharge Assessment Last Done: 03/03/25 15:46 Discharge Date/Time: 03/03/25 15:47 Print Language: Upper Sorbian
[2025-03-03 12:19] LABS: Hematocrit 41.4 % (37.0-47.0); Hemoglobin 13.9 g/dl (12.0-16.0); Imm Gran Abs Auto 0.01 X10*3/uL (0.00-0.03); Imm Gran Pct Auto 0.2 % (0.0-0.4); Lymphocytes Absolute Auto 1.3 X10*3/uL (1.2-4.9); Mean Corpuscular HGB Conc 33.6 g/dl (31.0-35.0); Mean Corpuscular Hemoglobin 30.4 pg (27.0-33.0); Mean Corpuscular Volume 90.6 fL (80.0-98.0); NRBC Abs Auto 0.000 X10*3/uL (0.0-0.012); NRBC Pct Auto 0.0 /100WBC (0.0-0.2); Platelet Count 245 X10*3/uL (160-400); Red Blood Count 4.57 X10*6/uL (4.20-5.50); White Blood Count 4.9 X10*3/uL (4.8-10.8)
[2025-03-03 12:34] LABS: Alanine Aminotransferase 18 U/L (0-31); Albumin Level 4.7 g/dL (3.5-5.0); Alkaline Phosphatase 84 U/L (39-117); Anion Gap 12 (12-20); Aspartate Amino Transferase 25 U/L (5-31); Blood Urea Nitrogen 14 mg/dL (9-16); Calcium 9.3 mg/dL (8.4-10.2); Carbon Dioxide 26 mmol/L (22-29); Chloride 108 mmol/L (96-108); Creatinine Clr Calc Pharmacy 81.8; Estimated Glomerular Filt Rate > 60; Magnesium 1.8 mg/dL (1.6-2.6); Potassium 3.8 mmol/L (3.3-5.1); Sodium 142 mmol/L (135-145); Total Protein 7.3 g/dL (6.5-8.0)
[2025-03-03] MEDS: iohexoL 350 MG/ML 100 ML INFUS..BTL IV (13:50)
[2025-03-03 14:23] VITALS: BP 146/56; PULSE 51; RESP 16; TEMP 36.5; O2SAT 96
[2025-03-03 15:46] VITALS: BP 146/56; PULSE 51; RESP 16; TEMP 36.5; O2SAT 96
== END 2025-03-03 15:47 | disposition home or self-care (01) ==
PROVIDERS: Emergency Provider Emergency Medicine; PCP Pediatrics
DX: G43.E09 Chronic migraine with aura, not intractable, without status migrainosus (principal); R11.0 Nausea; H53.143 Visual discomfort, bilateral; H93.A3 Pulsatile tinnitus, bilateral; Z79.899 Other long term (current) drug therapy
CPT/HCPCS: 36415; 70496; 70498; 80048; 80076; 83735; 85025; 96365; 96366; 96375; 99285; J0131; J1100; J2405; J3360; J3475; J7120; Q9967

== ENCOUNTER → 2025-03-03 11:39 | Outpatient (BNV) | payer OTHER, MEDICAID, SELFPAY | PROVIDERS: Emergency Provider Emergency Medicine; PCP Pediatrics; Visit Provider Radiology Diagnostic Radiology | DX: G43.909 Migraine, unspecified, not intractable, without status migrainosus (principal); H93.A9 Pulsatile tinnitus, unspecified ear | CPT/HCPCS: 70496; 70498 ==